=== PATIENT | male | born 1955 | race Caucasian/White ===

== ENCOUNTER → 2018-12-31 | Outpatient (REF) | payer BC, OTHER ==
[2018-12-31 13:58] LABS: HEMATOCRIT 50.3 % (42.0-52.0); HEMOGLOBIN 16.6 g/dl (13.5-17.5); MEAN CORPUSCULAR HEMOGLOBIN 31.3 pg (27.0-33.0); MEAN CORPUSCULAR VOLUME 94.9 fl (80.0-96.0); PLATELET COUNT, AUTOMATED 171 10^3/uL (150-450); WHITE BLOOD COUNT 4.7 10^3/uL (4.0-10.0)
[2018-12-31 14:06] LABS: BILIRUBIN,TOTAL 0.6 MG/DL (0.2-1.0); CALCIUM LEVEL 8.9 MG/DL (8.8-10.2); CREATININE FOR GFR 1.29 MG/DL (0.70-1.30); GLOMERULAR FILTRATION RATE 59.7 (>49); POTASSIUM SERUM 4.4 MEQ/L (3.5-5.1)
[2018-12-31 14:07] LABS: ALBUMIN 3.6 GM/DL (3.2-5.2); TOTAL PROTEIN 6.7 GM/DL (6.4-8.2)
[2018-12-31 14:12] LABS: APPEARANCE, URINE CLEAR (CLEAR); BACTERIA, URINE AUTO NEGATIVE (NEGATIVE); BILIRUBIN, URINE AUTO NEGATIVE (NEGATIVE); BLOOD, URINE BLOOD 1+ (NEGATIVE); COLOR, URINE YELLOW (YELLOW); GLUCOSE, URINE (UA) AUTO NEGATIVE (NEGATIVE); KETONE, URINE AUTO NEGATIVE (NEGATIVE); LEUKOCYTE ESTERASE, URINE AUTO NEGATIVE (NEGATIVE); NITRITE, URINE AUTO NEGATIVE (NEGATIVE); PROTEIN, URINE AUTO NEGATIVE (NEGATIVE); RBC, URINE AUTO 1 /HPF (0-3); SPECIFIC GRAVITY URINE AUTO 1.018 (1.002-1.035); SQUAMOUS EPITHELIAL CELL UR AU 0 /HPF (0-6); UROBILINOGEN, URINE AUTO 0.2 mg/dL (0.0-2.0); WBC, URINE AUTO 0 /HPF (0-3)
[2018-12-31 14:14] LABS: CORTISOL AM 10.5 UG/DL (4.3-22.4)
[2018-12-31 14:50] LABS: MALB URINE SIEMENS 7.9 MG/L; MAU/CREAT RATIO 5.4 MCG/MG (0.0-30.0)
== END ==
LOC: M LABNEURO 10:32
PROVIDERS: ATTEND Internal Medicine Nephrology
DX: Z52.4 Kidney donor (principal)

== ENCOUNTER → 2019-10-24 | Outpatient (CLI) | payer BC, OTHER | LOC: M LABSMTC 08:37 | PROVIDERS: ATTEND Anesthesiology | DX: Z01.812 Encounter for preprocedural laboratory examination (principal); Z20.828 Contact with and (suspected) exposure to other viral communicable diseases | CPT/HCPCS: C9803; U0003 ==

== ENCOUNTER 2019-10-29 06:19 | Day surgery (SDC) | payer BC, MEDICARE ==
[~2019-10-29] VITALS: Ht 182.9 cm; Wt 88.0 kg
[~2019-10-29 06:19] MED LIST: LIDOCAINE 1% MDV 20ML VIAL SQ PRN; LR 1,000 ML IV ONE; ceFAZolin SOD 1 GM in D5W MINI-BAG PLUS 50 ML IV ONE
[2019-10-29] MEDS ORDERED: BUPIVACAINE/EPIN 0.25% 30 ML VIAL As Ordered ONE (07:16)
[2019-10-29] MEDS ORDERED: ONDANSETRON 4MG/2ML VIAL As Ordered ONE (07:51)
[2019-10-29] MEDS ORDERED: dexameTHASONE 4 MG/ML 1ML VIAL (J1100 PER 1MG) As Ordered ONE (07:51)
[2019-10-29] MEDS ORDERED: LIDOCAINE 2% 100MG/5ML SDV (FOR ANES.) As Ordered ONE (07:51)
[2019-10-29] MEDS ORDERED: MIDAZOLAM INJ 2MG/2ML VIAL (J2250 PER 1MG) As Ordered ONE (07:51)
[2019-10-29] MEDS ORDERED: ROCURONIUM BROMIDE 50 MG/5 ML VIAL As Ordered ONE ×2 (07:51→08:01)
[2019-10-29] MEDS ORDERED: fentaNYL 250 MCG/5 ML INJECTION (J3010) As Ordered ONE (07:51)
[2019-10-29] MEDS ORDERED: propofoL 200 MG/20 ML VIAL As Ordered ONE (07:51)
[2019-10-29] MEDS ORDERED: METOCLOPRAMIDE INJ 10MG/2ML VIAL (J2765 PER 1) As Ordered ONE (07:51)
[2019-10-29] MEDS ORDERED: SUGAMMADEX SODIUM 500 MG/5 ML VIAL (BRIDION) As Ordered ONE (07:52)
[2019-10-29] MEDS ORDERED: ACETAMINOPHEN 1000MG 100ML IV BTL (OFIRMEV) (J0131 PER 10MG) As Ordered ONE (07:52)
[2019-10-29] MEDS ORDERED: KETOROLAC 60MG 2ML VIAL As Ordered ONE (08:01)
[2019-10-29] MEDS ORDERED: LR 1,000 ML IV SCH ×2 (10:15)
[2019-10-29] MEDS ORDERED: MEPERIDINE INJ 25 MG/ML VIAL (J2175) IV PRN (10:15)
[2019-10-29] MEDS ORDERED: ONDANSETRON 4MG/2ML VIAL IV PRN ×2 (10:15)
[2019-10-29] MEDS ORDERED: oxyCODONE 5MG TAB PO PRN (10:15)
[2019-10-29] MEDS ORDERED: METOCLOPRAMIDE INJ 10MG/2ML VIAL (J2765 PER 1) IV PRN (10:15)
[2019-10-29] MEDS ORDERED: fentaNYL 100 MCG/2 ML INJECTION (J3010) IV PRN (10:15)
[2019-10-29] MEDS ORDERED: NORCO, ANEXSIA 5/325MG TABLET (HYDROcodone/ACETAMINOPHEN) PO PRN (10:15)
[2019-10-29 11:20] VITALS: BP 122/69
--- NOTE | 2019-11-11 14:22 | ECGEPIP ---
[facility] Test Date: 2019-10-29 Pat Name: SAGE FERRO Department: Room: - Gender: Male Cyber Security Administrator: ROWENA : 1955 Requested By: SERGIO Tomlin Order Number: [id number] Reading MD: Juan A Stiles Measurements Intervals [place] Rate: 64 P: 65 WV: 160 QRS: 61 QRSD: 105 T: 62 QT: 387 QTc: 402 Interpretive Statements SINUS RHYTHM NORMAL ECG SEE SCANNED DOWNTIME REPORT
--- NOTE | 2019-11-18 16:14 | RO ---
DATE OF OPERATION: 10/29/2019 PREOPERATIVE DIAGNOSIS: Left inguinal hernia. POSTOPERATIVE DIAGNOSIS: Left inguinal hernia. PROCEDURE: Robotic-assisted laparoscopic left inguinal hernia repair with ProGrip mesh. SURGEON: Garrison Conn M.D. ANESTHESIA: General endotracheal anesthesia. SUPERVISOR REACTOR FUELING: CHRIS Ramos, (provided trocar placement, instrument exchange, and abdominal wall closure). ESTIMATED BLOOD LOSS: Minimal. FLUIDS: Crystalloid. BRIEF PROCEDURE SUMMARY: The patient was brought to the operating room and was given general anesthesia. After adequate anesthesia and preoperative antibiotics were given, the patient was prepped and draped in the usual sterile fashion. Next, a supraumbilical incision was made with the skin knife. Blunt dissection was carried down to the fascia and Veress needle placed into the abdominal cavity and insufflated to 15 mm of pressure. A dilating 8-mm trocar was placed. Under direct visualization, two lateral trocars were placed. There was some omentum that was adherent to previous donor nephrectomy site on the left hand side of the abdomen. This was taken with monopolar cut scissors. After this was taken down, the patient was placed in Trendelenburg position. The left inguinal hernia was easily identified and did have the edge of the sigmoid colon in this. After placing in deep Trendelenburg, the peritoneum was taken down with monopolar cut scissors. Then, the plane was developed in the avascular plane between the peritoneum and the deeper muscular tissues and epigastrics were all visualized, the hernia sac was quite adherent and tenaciously adherent to the surrounding structures. Eventually, this was taken off with some blunt dissection. There was some minimal oozing from the hernia sac itself, and this was well controlled with some electrocautery. Eventually, at this point, however, the end of the hernia sac was very difficult to assess, but the hernia sac was entered. Once it was entered, it was easier to visualize the end of the hernia sac and thus transecting this, although this was an easier transection. There was some minimal oozing from the thickened tissue in this area. The vessels and vas were all seen and preserved on this side, and were nicely dissected off this. Eventually, this was mobilized off the cord structures, off the Ambrose's, and pubis laterally, and the ProGrip mesh was cut to the appropriate size. Given there was some minimal oozing from the cord structures on the side, although this appeared to have stopped, the Nirav was placed in the inguinal canal on that side. Then, the ProGrip mesh was placed in the appropriate place, pressed into position, and the peritoneum closed over this over this. The omentum, where it was taken off of the abdominal wall, was reevaluated and revealed no active bleeding. All trocars were removed under direct visualization. Then, 4-0 Vicryl was used to close all skin incisions, with Steri-Strips, and a dry sterile dressing. The patient was awakened, extubated, and brought to the recovery room awake, alert, and hemodynamically stable. Sponge and needle counts were correct x2. MTDD
== END 2019-10-29 11:55 | disposition home or self-care (01) ==
LOC: M SDC 06:19
PROVIDERS: ATTEND Surgery
DX: K40.90 Unilateral inguinal hernia, without obstruction or gangrene, not specified as recurrent (principal)
CPT/HCPCS: 49650; 93005; C1781; J0131; J0690; J1100; J1885; J2250; J2405; J2765; J3010

== ENCOUNTER → 2020-05-25 | Outpatient (REF) | payer MEDICARE ==
[2020-05-25 18:10] LABS: ALBUMIN 3.7 GM/DL (3.2-5.2); ALT/SGPT 30 U/L (12-78); BILIRUBIN,TOTAL 0.5 MG/DL (0.2-1.0); BLOOD UREA NITROGEN 20 MG/DL (7-18); CALCIUM LEVEL 9.2 MG/DL (8.8-10.2); CARBON DIOXIDE LEVEL 26 MEQ/L (21-32); CHLORIDE LEVEL 108 MEQ/L (98-107); CHOLESTEROL LEVEL 179 MG/DL (<200); CHOLESTEROL RISK RATIO 4.837 (<5); CREATININE FOR GFR 1.14 MG/DL (0.70-1.30); FREE T4 0.89 NG/DL (0.76-1.46); GLOMERULAR FILTRATION RATE > 60.0 (>49); GLUCOSE, FASTING 104 MG/DL (70-100); HDL CHOLESTEROL 37 MG/DL (>40); LDL CHOLESTEROL 106 MG/DL (<100); NON-HDL-C 142 MG/DL; POTASSIUM SERUM 4.1 MEQ/L (3.5-5.1); SODIUM LEVEL 140 MEQ/L (136-145); TOTAL PROTEIN 6.6 GM/DL (6.4-8.2); TRIGLYCERIDES LEVEL 179 MG/DL (<150)
[2020-05-25 18:14] LABS: MALB URINE SIEMENS 5.3 MG/L; MAU/CREAT RATIO 4.9 MCG/MG (0.0-30.0)
[2020-05-25 18:17] LABS: VITAMIN B12 LEVEL 680 PG/ML (247-911)
[2020-05-25 18:18] LABS: FOLATE 18.1 NG/ML (>5.4)
[2020-05-25 18:25] LABS: HEMOGLOBIN 15.6 g/dl (13.5-17.5); MEAN CORPUSCULAR HEMOGLOBIN 30.8 pg (27.0-33.0); MEAN CORPUSCULAR HGB CONC 33.2 g/dl (32.0-36.5); MEAN CORPUSCULAR VOLUME 92.9 fl (80.0-96.0); PLATELET COUNT, AUTOMATED 185 10^3/uL (150-450); RED BLOOD COUNT 5.06 10^6/uL (4.30-6.10); WHITE BLOOD COUNT 5.6 10^3/uL (4.0-10.0)
== END ==
LOC: M SFHCADAM 14:30
PROVIDERS: ATTEND Family Medicine
DX: Z52.4 Kidney donor (principal); R53.83 Other fatigue; E78.5 Hyperlipidemia, unspecified; R00.2 Palpitations; Z12.5 Encounter for screening for malignant neoplasm of prostate
CPT/HCPCS: 80053; 80061; 82043; 82607; 82746; 84439; 84443; 85027; G0103

== ENCOUNTER → 2020-11-24 | Outpatient (REF) | payer MEDICARE ==
[2020-11-24 20:04] LABS: HEMATOCRIT 48.6 % (42.0-52.0); HEMOGLOBIN 15.9 g/dl (13.5-17.5); MEAN CORPUSCULAR HEMOGLOBIN 30.5 pg (27.0-33.0); MEAN CORPUSCULAR HGB CONC 32.7 g/dl (32.0-36.5); MEAN CORPUSCULAR VOLUME 93.1 fl (80.0-96.0); PLATELET COUNT, AUTOMATED 207 10^3/uL (150-450); RED BLOOD COUNT 5.22 10^6/uL (4.30-6.10); WHITE BLOOD COUNT 5.8 10^3/uL (4.0-10.0)
[2020-11-24 20:25] LABS: ALBUMIN 2.6 GM/DL (3.2-5.2); BILIRUBIN,TOTAL 0.5 MG/DL (0.2-1.0); C REACTIVE PROTEIN QUANTITATIV 1.82 MG/DL (0.00-0.30); CALCIUM LEVEL 8.5 MG/DL (8.8-10.2); CREATININE FOR GFR 1.3 MG/DL (0.70-1.30); FREE T4 1.16 NG/DL (0.76-1.46); GLOMERULAR FILTRATION RATE 58.8 (>49); POTASSIUM SERUM 5.5 MEQ/L (3.5-5.1); THYROID STIMULATING HORMONE 1.21 uIU/ML (0.358-3.740); TOTAL PROTEIN 5.9 GM/DL (6.4-8.2)
[2020-11-24 20:26] LABS: HEMOGLOBIN A1c 5.4 %
== END ==
LOC: M SFHCADAM 15:14
PROVIDERS: ATTEND Family Medicine
DX: Z52.4 Kidney donor (principal); U07.1 COVID-19; R06.00 Dyspnea, unspecified; R53.83 Other fatigue

== ENCOUNTER → 2020-11-24 | Outpatient (CLI) | payer MEDICARE ==
--- NOTE | 2020-11-24 15:46 | REP ---
INDICATION: COVID 19. COMPARISON: None. TECHNIQUE: PA and lateral FINDINGS: Diffuse bilateral scattered patchy and curvilinear opacities are identified with a more focal opacity seen in the right upper lobe inferiorly. The pleural angles are sharp the heart is not enlarged. The osseous structures are within normal limits. IMPRESSION: I have been given history that the patient is positive for COVID-19. If so, than the aforementioned findings are likely a sequela of that disease. Follow-up to complete resolution is, however, recommended. There are no priors for comparison. <Electronically signed by Curt Niño > 11/24/20 [id number]
== END ==
LOC: M ADAMS 15:23
PROVIDERS: ATTEND Family Medicine
DX: Z52.4 Kidney donor (principal); R91.8 Other nonspecific abnormal finding of lung field; U07.1 COVID-19; R06.00 Dyspnea, unspecified; R53.83 Other fatigue

== ENCOUNTER → 2020-11-29 | Outpatient (CLI) | payer MEDICARE ==
[~2020-11-29] MED LIST changes: +ISOVUE-370 76% 100ML VIAL As Ordered ONE; -LIDOCAINE 1% MDV 20ML VIAL SQ PRN; -LR 1,000 ML IV ONE; -ceFAZolin SOD 1 GM in D5W MINI-BAG PLUS 50 ML IV ONE
--- NOTE | 2020-11-29 12:30 | REP ---
INDICATION: DYSPNEA, HX OF COVID, D DIMER ELEVATION COMPARISON: None. TECHNIQUE: Axial contrast enhanced images from the thoracic inlet to the upper abdomen using pulmonary embolus technique with multiplanar re-formations. 75 ml Isovue 370 intravenous contrast material administered without complication. This CT examination was performed using the following dose reduction techniques: Automated exposure control, adjustment of mA and/or kv according to the patient's size, and use of iterative reconstruction technique. FINDINGS: Satisfactory enhancement of the pulmonary vasculature is achieved and no filling defects are identified to suggest pulmonary embolus. Further evaluation of the mediastinum demonstrates normal thoracic aorta, heart and pericardium. The bilateral lung cantrell demonstrate significant diffuse bilateral opacities and moderate lower lobe consolidations consistent with multifocal pneumonia and COVID-19 pulmonary disease. Reactive mediastinal adenopathy noted. No effusion. No pneumothorax. Tracheobronchial tree is patent. IMPRESSION: No evidence for pulmonary embolus. Significant diffuse bilateral opacities and lower lobe consolidations. Given the patient's history, findings are consistent with COVID-19 pulmonary disease and multifocal pneumonia. <Electronically signed by Stefan Villafana > 11/29/20 0305
== END ==
LOC: M RAD 11:26
PROVIDERS: ATTEND Family Medicine
DX: R06.00 Dyspnea, unspecified (principal); R79.89 Other specified abnormal findings of blood chemistry; U07.1 COVID-19
CPT/HCPCS: 71275; Q9967

== ENCOUNTER → 2020-12-14 | Outpatient (CLI) | payer MEDICARE ==
--- NOTE | 2020-12-14 17:56 | ECHO ---
ECHOCARDIOGRAM DATE OF PROCEDURE: 12/14/2020 Age: 65 Gender: Male Height: 72 inches Weight: 177 pounds Body surface area: 2.02 m2 Outpatient. REFERRING PHYSICIAN: Matt Naik M.D. INDICATION: Dyspnea. MEASUREMENTS: 2D Measurements: RV - 3.8 cm LV - 4.5 cm Septum 0.9 cm Posterior wall 0.9 cm Aortic root 3.1 cm LA - 3.8 cm LVEF 70% Doppler Measurements: AV - 1.26 m/s LVOT - 1.09 m/s LVOT diameter 2.0 cm MV-E 61, A 88, E/A ratio 0.7 Early mitral deceleration 299 msec E prime medial 7.3 A prime medial 11.4 E prime lateral 13.5 Average E/E prime ratio 5.9/PCWP 9.2 mmHg PV - 0.8 m/s Pulmonary artery acceleration time 109 msec PASP 34 mmHg IVC - 1.4 cm COMMENTS: Normal sinus rhythm without intraventricular conduction disturbance. M-mode and 2-dimensional echocardiography was performed with pulse, continuous wave, color flow, and tissue Doppler studies. Normal left ventricular size, wall thickness, and hyperkinetic wall motion. Left atrium size upper limits of normal with grade 1 LV diastolic dysfunction but current mean left atrial pressure well within normal limits. Normal right heart chamber sizes and motion with single Doppler sign of borderline to mild pulmonary hypertension. Somewhat reduced IVC size with readily collapsing against an elevated central venous pressure. Normal aortic dimensions. Slightly thickened aortic cusps but normal cusp separation with mild insufficiency. Normal-appearing mitral valvular apparatus and leaflet excursion with no posterior systolic buckling and only trace insufficiency. Normal-appearing tricuspid valve with trace insufficiency. No apparent intracardiac mass or pericardial effusion.
== END ==
LOC: M CARPUL 09:26
PROVIDERS: ATTEND Family Medicine
DX: R06.00 Dyspnea, unspecified (principal)

== ENCOUNTER → 2021-01-29 | Outpatient (CLI) | payer MEDICARE ==
--- NOTE | 2021-01-29 09:43 | REP ---
INDICATION: PNEUMONIA DUE TO COVID. COMPARISON: 11/29/2020. TECHNIQUE: CT chest performed without the use of intravenous contrast. Sagittal and coronal reconstruction images are performed. FINDINGS: Lungs: There are mild diffuse bilateral posterolateral residual infiltrates present, with significant improvement compared to the prior study. There is a calcified granuloma in the left upper lobe. Another is seen in the left lower lobe peripherally. Mediastinum: No gross adenopathy. Lisa: No gross adenopathy. Axilla: No gross adenopathy. Pleura: No effusion. Heart: Not enlarged. Thoracic aorta: No aneurysm. There is ectasia of the ascending thoracic aorta up to 4 cm. Upper abdominal structures: Grossly unremarkable. Visualized osseous structures: There are degenerative changes of the spine without compression deformity. There is a probable bone island in the T3 vertebral body. IMPRESSION: Significant improvement of previously noted diffuse bilateral infiltrates, with mild diffuse bilateral posterolateral residual infiltrates present. <Electronically signed by Robbin Downing > 01/29/21 0939
== END ==
LOC: M RAD 09:10
PROVIDERS: ATTEND Family Medicine
DX: J12.82 Pneumonia due to coronavirus disease 2019 (principal)

== ENCOUNTER → 2021-05-02 | Outpatient (REF) | payer MEDICARE ==
[2021-05-02 16:41] LABS: HEMATOCRIT 47.1 % (42.0-52.0); HEMOGLOBIN 16.1 g/dl (13.5-17.5); MEAN CORPUSCULAR HEMOGLOBIN 30.8 pg (27.0-33.0); MEAN CORPUSCULAR HGB CONC 34.2 g/dl (32.0-36.5); MEAN CORPUSCULAR VOLUME 90.2 fl (80.0-96.0); PLATELET COUNT, AUTOMATED 177 10^3/uL (150-450); RED BLOOD COUNT 5.22 10^6/uL (4.30-6.10); WHITE BLOOD COUNT 5.6 10^3/uL (4.0-10.0)
[2021-05-02 17:03] LABS: APPEARANCE, URINE CLEAR (CLEAR); BACTERIA, URINE AUTO NEGATIVE (NEGATIVE); BILIRUBIN, URINE AUTO NEGATIVE (NEGATIVE); BLOOD, URINE BLOOD NEGATIVE (NEGATIVE); CALCIUM OXALATE CRYSTALS SMALL; COLOR, URINE YELLOW (YELLOW); GLUCOSE, URINE (UA) AUTO NEGATIVE (NEGATIVE); KETONE, URINE AUTO NEGATIVE (NEGATIVE); LEUKOCYTE ESTERASE, URINE AUTO NEGATIVE (NEGATIVE); NITRITE, URINE AUTO NEGATIVE (NEGATIVE); PROTEIN, URINE AUTO NEGATIVE (NEGATIVE); RBC, URINE AUTO 1 /HPF (0-3); SQUAMOUS EPITHELIAL CELL UR AU 0 /HPF (0-6); UROBILINOGEN, URINE AUTO 0.2 mg/dL (0.0-2.0); WBC, URINE AUTO 1 /HPF (0-3)
[2021-05-02 17:13] LABS: MALB URINE SIEMENS 7.5 MG/L; MAU/CREAT RATIO 4.9 MCG/MG (0.0-30.0)
[2021-05-02 17:44] LABS: ALBUMIN 3.8 GM/DL (3.2-5.2); ALT/SGPT 32 U/L (12-78); BILIRUBIN,TOTAL 0.5 MG/DL (0.2-1.0); BLOOD UREA NITROGEN 27 MG/DL (7-18); CALCIUM LEVEL 9.5 MG/DL (8.8-10.2); CARBON DIOXIDE LEVEL 31 MEQ/L (21-32); CHLORIDE LEVEL 107 MEQ/L (98-107); CREATININE FOR GFR 1.43 MG/DL (0.70-1.30); GLOMERULAR FILTRATION RATE 52.7 (>49); GLUCOSE, FASTING 93 MG/DL (70-100); POTASSIUM SERUM 4.1 MEQ/L (3.5-5.1); RHEUMATOID FACTOR QUANT < 10.0 IU/ML (<15.0); SODIUM LEVEL 141 MEQ/L (136-145); TOTAL PROTEIN 6.7 GM/DL (6.4-8.2)
== END ==
LOC: M SFHCADAM 13:27
PROVIDERS: ATTEND Family Medicine
DX: L29.9 Pruritus, unspecified (principal); R82.998 Other abnormal findings in urine; M25.50 Pain in unspecified joint

== ENCOUNTER → 2021-06-07 | Outpatient (CLI) | payer MEDICARE | LOC: M RAD 09:41 | PROVIDERS: ATTEND Family Medicine | DX: U07.1 COVID-19 (principal); Z12.82 Encounter for screening for malignant neoplasm of nervous system ==

== ENCOUNTER → 2021-07-11 | Outpatient (REF) | payer MEDICARE ==
[2021-07-12 13:08] LABS: APPEARANCE, URINE CLEAR (CLEAR); BACTERIA, URINE AUTO NEGATIVE (NEGATIVE); BILIRUBIN, URINE AUTO NEGATIVE (NEGATIVE); BLOOD, URINE BLOOD NEGATIVE (NEGATIVE); COLOR, URINE YELLOW (YELLOW); GLUCOSE, URINE (UA) AUTO NEGATIVE (NEGATIVE); KETONE, URINE AUTO NEGATIVE (NEGATIVE); LEUKOCYTE ESTERASE, URINE AUTO NEGATIVE (NEGATIVE); NITRITE, URINE AUTO NEGATIVE (NEGATIVE); PROTEIN, URINE AUTO NEGATIVE (NEGATIVE); RBC, URINE AUTO 1 /HPF (0-3); SPECIFIC GRAVITY URINE AUTO 1.021 (1.002-1.035); SQUAMOUS EPITHELIAL CELL UR AU 0 /HPF (0-6); WBC, URINE AUTO 1 /HPF (0-3)
[2021-07-12 13:43] LABS: MALB URINE SIEMENS 10.2 MG/L; MAU/CREAT RATIO 5.1 MCG/MG (0.0-30.0)
[2021-07-12 13:44] LABS: FREE T4 0.96 NG/DL (0.76-1.46); THYROID STIMULATING HORMONE 1.87 uIU/ML (0.358-3.740)
== END ==
LOC: M SFHCADAM 16:02
PROVIDERS: ATTEND Family Medicine
DX: L29.9 Pruritus, unspecified (principal); N18.31 Chronic kidney disease, stage 3a